=== PATIENT | male | born 1935 | race Caucasian/White ===

== ENCOUNTER 2019-01-18 17:26 | Emergency (ER) | payer MEDICARE, BC ==
[~2019-01-18] VITALS: Ht 172.7 cm; Wt 74.4 kg
[2019-01-18] MEDS ORDERED: ATOR10TA PO (17:47)
--- NOTE | 2019-01-18 17:51 | NUR ---
PT IS A/OX4, PRESENTS TO THE ER C/O BLURRED VISION IN THE R EYE THIS AM (APPROXIMATELY AROUND 0830) THAT HAS IMPROVED SINCE. PT STATES THE VISION IS NOT THE SAME A NORMAL, BUT HAS IMPROVED SIGNIFICANTLY FROM THIS AM. VSS. BILATERAL PERRLA, TECHNICAL WRITER EQUAL IN BUE, NO ARM DRIFT, NO LEG DRIFT, CLEAR SPEECH. PT DENIES C/P, SOB, N/V/D, DIZZINESS, HEADACHE.
[2019-01-18 18:59] LABS: BASOPHILS % (AUTO) 0.8 % (0.0-2.0); EOSINOPHILS # (AUTO) 0.3 K/uL (0.0-0.7); EOSINOPHILS % (AUTO) 4.1 % (0.0-7.0); HEMATOCRIT 40.2 % (36.7-47.1); HEMOGLOBIN 13.2 g/dL (12.5-16.3); LYMPHOCYTES # (AUTO) 1.6 K/uL (20.0-40.0); LYMPHOCYTES % (AUTO) 25.8 % (20.5-51.5); MEAN CORPUSCULAR HEMOGLOBIN 31.3 uug (23.8-33.4); MEAN CORPUSCULAR HGB CONC 33 g/dL (32.5-36.3); MEAN CORPUSCULAR VOLUME 95.4 fL (73.0-96.2); MONOCYTES # (AUTO) 0.6 K/uL (2.0-10.0); MONOCYTES % (AUTO) 9.2 % (0.0-11.0); NEUTROPHILS # (AUTO) 3.8 K/uL (1.8-8.9); NEUTROPHILS % (AUTO) 60.1 % (38.5-71.5); PLATELET COUNT (AUTO) 162 K/uL (152-348); RED BLOOD CELL COUNT(AUTO) 4.22 MIL/uL (4.06-5.63); WHITE BLOOD COUNT (AUTO) 6.3 K/uL (3.6-10.2)
--- NOTE | 2019-01-18 18:59 | NUR ---
SHIFT REPORT GIVEN TO POLINA Rodriguez RN.
[2019-01-18 19:06] LABS: CARBON DIOXIDE 31 mmol/L (21-32); CHLORIDE 105 mmol/L (98-107); CREATININE 1.5 mg/dL (0.6-1.3); GLUCOSE 96 mg/dL (74-106); POTASSIUM 4.2 mmol/L (3.5-5.1); UREA NITROGEN, BLOOD 28 mg/dL (7-18)
--- NOTE | 2019-01-18 19:10 | NUR ---
Assumed care of pt at this time. Pt is resting comfortably in bed, just got back from CT scan. No acute distress noted.
[2019-01-18 19:24] LABS: ALANINE AMINOTRANSFERASE 26 U/L (16-63); ALKALINE PHOSPHATASE 46 U/L (50-136); ASPARTATE AMINOTRANSFERASE 20 U/L (15-37); BILIRUBIN,DIRECT 0.1 mg/dL (0.0-0.2); BILIRUBIN,TOTAL 0.5 mg/dL (0.2-1.0); TOTAL PROTEIN, SERUM 7.9 g/dL (6.4-8.2)
--- NOTE | 2019-01-18 19:45 | NUR ---
Pt's son at bedside. Will continue to monitor.
[2019-01-18] MEDS ORDERED: ASPIRIN 325 MG TABLET ONE (20:08)
[2019-01-18] MEDS ORDERED: ASPIRIN 325 MG TABLET PO ONE (20:15)
--- NOTE | 2019-01-18 20:24 | NUR ---
Patient discharged to home in stable conditon. Written and verbal after care instructions given. Patient verbalizes understanding of instructions. Pt walked out of ER in stable gait accompanied by son who will drive him home. Pt appears in no distress. Vital signs stable. Respirations even + unlabored.
--- NOTE | 2019-01-18 20:24 | NUR ---
Patient does not wish to proceed with medical care recommended by Dr. Scott. Patient given information related to possible complications, up to and including , which could occur as a result of leaving the hospital at this time. Patient verbalizes understanding of risks involved due to leaving against medical advice. Patient has signed AMA form.
[2019-01-18 20:25] VITALS: BP 120/74
== END 2019-01-18 20:27 | disposition left against medical advice (07) ==
LOC: ER 17:26
DX: G45.9 Transient cerebral ischemic attack, unspecified (principal); J45.909 Unspecified asthma, uncomplicated; K21.9 Gastro-esophageal reflux disease without esophagitis; Z79.899 Other long term (current) drug therapy
CPT/HCPCS: 36415; 70030-TC; 70450; 85025; 85730; 93005; A4663